=== PATIENT | female | born 1990 | race American Indian/Alaskan Native ===

== ENCOUNTER 2021-04-18 15:05 | Emergency (ER) | payer MEDICAID ==
--- NOTE | 2021-04-18 16:47 | Emergency Department Report ---
ED Neck Pain/Injury HPI - General Chief Complaint: Neck Pain/Injury Stated Complaint: BACK SPASM Time Seen by Provider: 04/18/21 16:37 Mode of arrival: Ambulatory Limitations: No Limitations - History of Present Illness Initial Comments: Patient is a 30-year-old female presents emergency room complaints of neck pain that began yesterday. She states she feels the pain to the bilateral neck. She states it feels like spasms. 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 She denies any fall or injury or any trauma. She states her pain is increased with movement. She denies any vomiting, nausea, vision changes, headache. No past medical history. No allergies to medications. Last menstrual cycle , she denies any possibility of pr egnancy. - Related Data Previous Rx's Medication Instructions Recorded Last Taken Type Acetaminophen/Codeine [Tylenol #3] 1 tab PO Q6H PRN #20 tab 10/22/13 Unknown Rx Menthol/Camphor [Chazy [place] 1 applicatio TP BID #18 oint...g. 04/18/21 Unknown Rx Ointment] Naproxen 375 mg PO BID PRN #14 tablet 04/18/21 Unknown Rx methOCARBAMOL [Robaxin TAB] 500 mg PO BID PRN #14 tab 04/18/21 Unknown Rx Allergies Allergy/AdvReac Type Severity Reaction Status Date / Time No Known Allergies Allergy Unverified 10/22/13 15:43 ED Review of Systems ROS: Stated complaint: BACK SPASM Other details as noted in HPI Comment: All other systems reviewed and negative ED Past Medical Hx - Past Medical History Previous Medical History?: No - Surgical History Past Surgical History?: No - Social History Smoking Status: Never Smoker - Medications Home Medications: Home Medications Medication Instructions Recorded Confirmed Last Taken Type Acetaminophen/Codeine [Tylenol #3] 1 tab PO Q6H PRN #20 tab 10/22/13 Unknown Rx Menthol/Camphor [Chazy [place] 1 applicatio TP BID #18 oint...g. 04/18/21 Unknown Rx Ointment] Naproxen 375 mg PO BID PRN #14 tablet 04/18/21 Unknown Rx methOCARBAMOL [Robaxin TAB] 500 mg PO BID PRN #14 tab 04/18/21 Unknown Rx ED Physical Exam - General Limitations: No Limitations General appearance: alert, in no apparent distress - Head Head exam: Present: atraumatic, normocephalic - Eye Eye exam: Present: normal appearance - ENT ENT exam: Present: mucous membranes moist - Neck Neck exam: Present: normal inspection, tenderness (mild bilateral c-spine paraspinal ttp, no midline C-spine ttp, no step offs, no deformities, no edema, no skin changes), full ROM. Absent: meningismus - Respiratory Respiratory exam: Present: normal lung sounds bilaterally. Absent: respiratory distress, wheezes, rales, rhonchi, stridor, chest wall tenderness, accessory muscle use, decreased breath sounds, prolonged expiratory - Cardiovascular Cardiovascular Exam: Present: regular rate, normal rhythm, normal heart sounds. Absent: systolic murmur, diastolic murmur, rubs, gallop - Back Exam Back exam: Present: normal inspection, full ROM. Absent: paraspinal tenderness, vertebral tenderness - Neurological Exam Neurological exam: Present: alert, oriented X3, CN II-XII intact, normal gait. Absent: motor sensory deficit - Psychiatric Psychiatric exam: Present: normal affect, normal mood - Skin Skin exam: Present: warm, dry, intact ED Course Vital Signs 04/18/21 04/18/21 16:12 17:02 Temperature 97.8 F 98.1 F Pulse Rate 79 88 Respiratory 18 18 Rate Blood Pressure 110/62 Blood Pressure 148/64 [Right] O2 Sat by Pulse 100 99 Oximetry ED Medical Decision Making - Medical Decision Making Patient is a 30-year-old female presents emergency room complaints of neck pain that began yesterday. She states she feels the pain to the bilateral neck. She states it feels like spasms. 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 She denies any fall or injury or any trauma. She states her pain is increased with movement. She denies any vomiting, nausea, vision changes, headache. No past medical history. No allergies to medications. Last menstrual cycle , she denies any possibility of . Vitals are normal. On exam:mild bilateral c-spine paraspinal ttp, no midline C-spine ttp, no step offs, no deformities, no edema, no skin changes. Patient has had no trauma, she has full range of motion, no meningeal signs. Symptoms appear likely consistent with muscle strain. Patient given prescription for medications. Discussed return precautions. Discussed the importance of outpatient follow-up. Advised patient Please use medication as prescribed. Follow-up with a primary care doctor. May use ice pack, heating pad, rest, epsom salt bath. Do not use heat or ice while using Chazy balm. Return to emergency room for any new or worsening symptoms. Critical care attestation.: If time is entered above; I have spent that time in minutes in the direct care of this critically ill patient, excluding procedure time. ED Disposition Clinical Impression: Neck pain Disposition: 01 HOME / SELF CARE / HOMELESS Is pt being admited?: No Does the pt Need Aspirin: No Condition: Stable Instructions: Muscle Strain, [id number], Acute Torticollis, Adult Additional Instructions: Please use medication as prescribed. Follow-up with a primary care doctor. May use ice pack, heating pad, rest, epsom salt bath. Do not use heat or ice while using Chazy balm. Return to emergency room for any new or worsening symptoms. Prescriptions: Naproxen 375 mg PO BID PRN #14 tablet PRN Reason: pain methOCARBAMOL [Robaxin TAB] 500 mg PO BID PRN #14 tab PRN Reason: muscle spasm/pain Menthol/Camphor [Chazy [place] Ointment] 1 applicatio TP BID #18 oint...g. Referrals: RADHA CORDON MD [Staff Physician] - 3-5 Days [facility] [Provider Group] - 3-5 Days Forms: Work/School Release Form(ED) Time of Disposition: 16:45 Print Language: BENGALI
[2021-04-18 17:05] VITALS: BP 148/64
== END 2021-04-18 17:01 | disposition home or self-care (01) ==
LOC: ED 15:05
DX: M54.2 Cervicalgia (principal)
CPT/HCPCS: 99282